=== PATIENT | male | born 1970 | race Caucasian/White ===

== ENCOUNTER 2019-11-23 12:57 | Inpatient (IN) | payer OTHER, SELFPAY ==
[2019-11-23] VITALS (8 sets, daily range): BP systolic 131–160; BP diastolic 84–121; PULSE 41–55; RESP 14–20; TEMP 36.3–36.9; O2SAT 97–100; BMI 29.0
--- NOTE | ~2019-11-23 | CT_ITS ---
EXAMINATION: CTA brain DATE: 11/26/2019 09:17 INDICATION: Cerebrovascular accident. TECHNIQUE: Computed tomographic angiography (CTA) of the head was performed without and with 100 mL O mnipaque-350 intravenous contrast. Automated exposure control and iterative reconstruction technique were employed. The dose-length product was 1075.43 mGy-cm. Maximum intensity projection 3D reconstru ctions were created. Volume-rendered 3D reconstructions of the intracranial arteries were created by the technologist on a separate workstation. COMPARISON: Head CT 11/23/2019 FINDINGS: There is a low-attenuation infarct in inferior left cerebellum in the expected distribution of left posterior inferior cerebellar artery. There is no intracranial hemorrhage or abnormal mass l esion. The ventricles are normal in size. There is mild mucosal thickening in the paranasal sinuses. The mastoid air cells are normal. The orbits are normal. There is total occlusion of left vertebral a rtery. There is no significant stenosis of basilar artery or the posterior cerebral arteries. There i s no significant stenosis of the intracranial internal carotid arteries or anterior or middle cerebra l arteries. Anterior communicating artery is normal. The posterior communicating arteries are normal. There is no aneurysm. IMPRESSION: 1. Acute/subacute infarct in inferior left cerebellum. 2. Total occlusion of left vertebral artery. Reviewed, dictated and finalized at location A.
--- NOTE | ~2019-11-23 | US_ITS ---
EXAMINATION: US carotid duplex BI DATE: 11/24/2019 13:37 INDICATION: Stroke with left-sided hemiparesis TECHNIQUE: Grayscale, color Doppler, and pulsed Doppler images of the cervical carotid arteries were obtained. The degree of vessel stenosis is placed in one of the following categories: normal, <50%, 5 0-69%, >=70% but less than near-occlusion, near-occlusion, or total occlusion. Note that percent sten osis relative to normal distal artery lumen diameter is indirectly measured from velocity measurement s as described by Emil, et al. Radiology 2003; 229:340-346. COMPARISON: None. FINDINGS: RIGHT: The right common carotid artery (CCA) peak systolic velocity (PSV) is 77 cm/s. The right internal car otid artery (ICA) PSV is 67 cm/s. The right ICA end-diastolic velocity (EDV) is 25 cm/s. The right IC A/CCA PSV ratio is 0.9. Grayscale and color Doppler images demonstrate no evident stenosis or plaque in the ICA. The external carotid artery (ECA) PSV is 67 cm/s. There is antegrade flow in the right ve rtebral artery. LEFT: The left CCA PSV is 90 cm/s. The left ICA PSV is 70 cm/s. The left ICA EDV is 22 cm/s. The left ICA/C CA PSV ratio is 0.8. Grayscale and color Doppler images and straight no evident stenosis or plaque in the ICA. The ECA PSV is 75 cm/s. There is antegrade flow in the left vertebral artery. IMPRESSION: 1. No evident plaque or stenosis in the right internal carotid artery. 2. No evident plaque or stenosis in the left internal carotid artery. Reviewed, dictated and finalized at location A.
--- NOTE | ~2019-11-23 | CT_ITS ---
EXAMINATION: CT brain wo con DATE: 11/23/2019 13:40 INDICATION: Stroke. Lower extremity weakness and dizziness. TECHNIQUE: Computed tomography (CT) of the head was performed without intravenous contrast. Sagittal and coronal reconstructions were performed. The mA was adjusted according to patient size. Iterative reconstruction technique was employed. The dose-length product was 605.33 mGy-cm. COMPARISON: None FINDINGS: No fracture. Region of prominent decreased attenuation in the left cerebellar hemisphere. No other le sions suspicious for infarct. No acute intracranial hemorrhage or abnormal extra axial fluid collecti on. Ventricles are normal and symmetric. No mass/mass effect. Mucous retention cyst in the left maxil marilyn sinus. The orbits and mastoid air cells are normal. IMPRESSION: 1. Nonspecific region of decreased attenuation in the left cerebellar hemisphere. Differential would include most likely infarct with decreased attenuation favoring subacute or chronic over acute. Diffe rential includes less likely malignancy or infection. Correlate with clinical history. Reviewed, dictated and finalized at location A. IMPRESSION: 1. Nonspecific region of decreased attenuation in the left cerebellar hemispher e. Differential would include most likely infarct with decreased attenuation fa voring subacute or chronic over acute. Differential includes less likely malign edelmira or infection. Correlate with clinical history.
--- NOTE | ~2019-11-23 | XR_ITS ---
EXAMINATION: XR pelvis 1-2V DATE: 11/23/2019 13:33 INDICATION: Pelvic pain post fall TECHNIQUE: An anteroposterior view of the pelvis was obtained. COMPARISON: None. FINDINGS: Mild lumbar levocurvature with severe spondylosis. Normal alignment at the bilateral hips. Old fractu re deformities at the right superior and inferior pubic rami. No acute fracture. Bilateral hip joint spaces are normal. There are a few phleboliths in the pelvis. IMPRESSION: 1. No acute osseous abnormality. Reviewed, dictated and finalized at location A.
--- NOTE | ~2019-11-23 | XR_ITS ---
EXAMINATION: XR chest 1V portable DATE: 11/23/2019 13:33 INDICATION: Stroke fall TECHNIQUE: frontal and lateral views of the chest were obtained. COMPARISON: None FINDINGS: Opacities at the bilateral lung bases including a linear opacity at the right lung base extending to the mid lung zone. No pulmonary edema pleural effusion or pneumothorax. Small calcified nodule at the left costophrenic angle consistent with old granulomatous disease. The cardiomediastinal silhouette is normal. Tortuous thoracic aorta. IMPRESSION: 1. Opacities at the bilateral lower lung zones which could represent atelectasis, pneumonia or combin ation thereof. Reviewed, dictated and finalized at location A. IMPRESSION: 1. Opacities at the bilateral lower lung zones which could represent atelectasi s, pneumonia or combination thereof.
--- NOTE | ~2019-11-23 | XR_ITS ---
EXAMINATION: XR chest 2V DATE: 11/26/2019 09:01 INDICATION: Pneumonia TECHNIQUE: AP and lateral views of the chest are obtained. COMPARISON: 11/23/2019 FINDINGS: Linear airspace opacities of the lung bases are consistent with subsegmental atelectasis. T here is decreased airspace opacity of the right lung base. There is no pleural effusion or pneumothor ax. The cardiomediastinal silhouette is normal. There is mild thoracic spondylosis. IMPRESSION: 1. Decreased bibasilar airspace opacity, consistent with resolving atelectasis versus pneumonia with persistent subsegmental atelectasis of the lung bases. Reviewed, dictated and finalized at location A.
--- NOTE | ~2019-11-23 | CT_ITS ---
EXAMINATION: CT lumbar spine wo con DATE: 11/23/2019 13:40 INDICATION: Lower extremity weakness post fall TECHNIQUE: Computed tomography (CT) of the lumbar spine was performed without intravenous contrast. A utomated exposure control and iterative reconstruction technique were employed. The dose-length produ ct was 1448.44 mGy-cm. COMPARISON: None FINDINGS: 15 degree levoscoliosis measured between L3 and S1. Likely physiologic minimal anterior wedging at T1 1-L1. No acute fracture. Old healed fracture deformity at the lateral aspect of the right superior pu bic ramus. Suggestion of additional old healed fracture along the anterior cortex of the right sacral ala. Severe right-sided disc height loss with sclerotic Modic type III endplate changes at L4-L5. Mo derate left-sided disc height loss at L5-S1 full/prominent Modic type III endplate changes. Diffuse m oderate disc height loss at L4-L5. Mild disc height loss at L2-L3. Lobular contour to the upper pole of the left kidney suggesting a partially visualized exophytic lesion which could be either a protein aceous/hemorrhagic cyst or solid neoplasm. There are few diverticula without adjacent inflammatory ch rhea along the sigmoid colon. Partially visualized small fat-containing left inguinal hernia. Paraver tebral soft tissues are unremarkable. The following disc levels are specifically discussed: T10-T11: The disc does not extend beyond the endplate margin. There is mild bilateral facet joint ost eoarthritis. There is no neural foraminal stenosis. There is no central canal stenosis. T11-T12: Disc is minimally bulging. There is mild bilateral facet joint osteoarthritis. There is no n eural foraminal stenosis. There is no central canal stenosis. T12-L1: Disc is minimally bulging. There is mild bilateral facet joint osteoarthritis. There is no ne ural foraminal stenosis. There is no central canal stenosis. L1-L2: Disc is mildly bulging. There is mild bilateral facet joint osteoarthritis. There is no neural foraminal stenosis. There is minimal central canal stenosis. L2-L3: Disc is mildly bulging. There is mild bilateral facet joint osteoarthritis. There is minimal b ilateral neural foraminal stenosis. There is mild central canal stenosis. L3-L4: Moderate diffuse disc bulge. There is mild bilateral facet joint osteoarthritis. There is mild bilateral neural foraminal stenosis. There is mild central canal stenosis. L4-L5: Moderate diffuse disc bulge. There is mild left and moderate right facet joint osteoarthritis. There is moderate right and mild left neural foraminal stenosis. There is mild to moderate central c anal stenosis. L5-S1: Mild diffuse disc bulge. There is mild bilateral facet joint osteoarthritis. There is mild rig ht and moderate left neural foraminal stenosis. There is no central canal stenosis. IMPRESSION: 1. Mild lower lumbar levoscoliosis with moderate to severe lower lumbar spondylosis. 2. Lobular contour at the upper pole of the left kidney suggesting a partially visualized exophytic p roteinaceous/hemorrhagic cyst or solid neoplasm. Recommend follow-up pre and postcontrast MRI for fur ther evaluation. Reviewed, dictated and finalized at location A. IMPRESSION: 1. Mild lower lumbar levoscoliosis with moderate to severe lower lumbar spondyl osis. 2. Lobular contour at the upper pole of the left kidney suggesting a partially visualized exophytic proteinaceous/hemorrhagic cyst or solid neoplasm. Recommen d follow-up pre and postcontrast MRI for further evaluation.
--- NOTE | 2019-11-23 13:05 | ECG_ITS ---
Measurements Intervals [place] Rate: 45 P: 34 IL: 171 QRS: -16 QRSD: 117 T: 74 QT: 500 QTc: 433 Interpretive Statements SINUS BRADYCARDIA EARLY PRECORDIAL R/S TRANSITION ST-T WAVE ABNORMALITY IN ANT/LAT LEADS- CONSIDER ISCHEMIA BASELINE WANDER- I, II ABNORMAL ECG Electronically Signed On 11-26-2019 16:59:22 CDT by Jose Doe D.O.
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
[2019-11-23 13:32] LABS: Basophils Percent Auto 0.2 % (0.2-1.2); Eosinophils Percent Auto 0.3 % (0-4.4); Hematocrit 44.5 % (42.0-52.0); Hemoglobin 15.5 g/dL (14.0-18.0); Immature Granulocyte Absolute 0.05 K/mm3 (0.00-0.031); Immature Granulocyte Percent A 0.4 % (0-0.5); Lymphocytes Absolute Auto 2.36 K/mm3 (0.9-3.2); Lymphocytes Percent Auto 17.5 % (18.3-44.2); Mean Corpuscular HGB Conc 34.8 g/dl (32-36); Mean Corpuscular Hemoglobin 33.6 pg (26-34); Mean Corpuscular Volume 96.5 fl (80-100); Mean Platelet Volume 10.2 fl (7.4-10.4); Monocytes Absolute Auto 0.6 K/mm3 (0.1-0.6); Monocytes Percent Auto 4.1 % (2.6-8.5); Neutrophils Absolute Auto 10.4 K/mm3 (1.3-6.7); Neutrophils Percent Auto 77.5 % (45.5-73.1); Platelet Count Result 275 k/mm3 (150-375); Red Blood Count 4.61 M/mm3 (4.6-6.20); Red Cell Distribution Width 13.1 % (11.5-14.5); White Blood Count 13.5 K/mm3 (4.5-10.0)
[2019-11-23 13:42] LABS: Creatine Kinase 42 U/L (55-170)
[2019-11-23 13:44] LABS: Alanine Aminotransferase 53 U/L (4-50); Albumin Level 4.3 g/dL (3.5-5.1); Alkaline Phosphatase 64 U/L (38-126); Aspartate Amino Transferase 34 U/L (17-59); Bilirubin,Total 1.4 mg/dL (0.2-1.3); Blood Urea Nitrogen 15 mg/dL (9-20); Calcium 9.3 mg/dL (8.4-10.2); Carbon Dioxide 23 mmol/L (22-30); Chloride 105 mmol/L (98-107); Estimated CRCL calculation 159 ml/min; Estimated Glomerular Filt Rate > 60; Glucose 147 mg/dL (75-110); Potassium 3.8 mmol/L (3.4-5.0); Sodium 141 mmol/L (137-145)
[2019-11-23 13:45] LABS: Partial Thromboplastin Time 27.3 SECONDS (22.3-36.8); Prothrombin Time 13.2 Seconds (11.1-14.7)
[2019-11-23 13:57] LABS: Troponin I 0.057 ng/mL (0.000-0.034)
[2019-11-23 14:52] LABS: NT Pro B Type Natriuretic Pept 139 PG/ML (5-100)
[2019-11-23] MEDS: ASPIRIN 81 MG CHEWABLE TABLET 324 MG PO (15:27)
--- NOTE | 2019-11-23 15:32 | PC.NURSE ---
Pt unable to give urine sample at this time. Informed Dr. Alanis of this
--- NOTE | 2019-11-23 16:29 | ADMGEN ---
This patient, Scott Ndiaye, was admitted to Intensive Care Unit-3. Patient/family oriented to hospital policies and general routines including ID bracelet, bed and alarms, visiting hours, pain management, procedures, bathroom and other care routines, personal items, smoking policy, room service/diet, and visiting hours. Valuables list has been completed. Information on how to activate the Rapid Response Team has been discussed. Patient/Family are encouraged to report perceived risks to care and to ask questions if they do not understand what they are told or what they should do.
[2019-11-23 17:14] LABS: Troponin I 0.055 ng/mL (0.000-0.034)
--- NOTE | 2019-11-23 18:22 | PM.IMHP ---
H&P: HPI History of Present Illness Chief complaint: CVA/community acquired pneumonia/elevated troponin Narrative: Scott Ndiaye is a 49 year old male came to the emergency room because he felt like he was having a stroke. The patient fell sleeps Chaitanya night and woke up a few times and vomited. He felt like he had some acid in his stomach and he could not sit up for more than a few minutes because his eyes were foggy and blood so the patient stayed on the couch. He was nauseated when sitting up. He no longer has any nausea at this time. The left side of his face and left hand feel numb today. He is having problems talking. Uses orientated and could not see the phone to call 911. Blood pressure medications. Which was read as nonspecific region of decreased attenuation in the left cerebral hemisphere. Differential included most likely infarct with decreased attenuation favoring subacute or chronic over acute. Differential includes least likely malignant is here infection. Correlate with clinical history. Some hip pain so a hip x-ray was taken and was read as mild lumbar levo curvature was severe spondylosis. Normal alignment of the bilateral hips. Old fracture deformities of the right superior and inferior pubic rami. No acute osseous to abnormality. Lumbar spine was read as mild lower lumbar levoscoliosis with moderate to severe lower lumbar spondylosis. Lobular contour at the upper pole of the left kidney suggesting a partially visualized exophytic proteinaceous hemorrhagic cyst or solid neoplasm recommend follow-up MRI. The patient stated that he still has blurred vision today. The patient was tested for covid 19 because his chest x-ray was read as a pace 80s at the bilateral lower lung zones which could represent atelectasis, pneumonia combination thereof. However the patient has not had any fever or chills or any cough. Patient was given an aspirin for the stroke and he was placed Azthromycin and Rocephin. Neurology has been consulted. MRI of the brain has been ordered. Date of service 11/23/2019 Review of Systems Review of Systems: Narrative: Patient difficult stated he thought he was here for a stroke and not for pneumonia. All systems reviewed & are unremarkable except as noted in HPI and below Constitutional: Constitutional: Reports as per HPI and Reports no additional constitutional complaints Eyes: Eyes: Reports as per HPI and Reports no additional eye complaints ENT: Reports system reviewed and no additional complaints, except as documented and Reports Normal hearing present Cardiovascular: Cardiovascular: Reports no additional cardiovascular complaints Respiratory: Respiratory: Reports no additional respiratory complaints and Reports no additional respiratory complaints Gastrointestinal: Gastrointestinal: Reports as per HPI and Reports no additional gastrointestinal complaints Musculoskeletal: Musculoskeletal: Reports no additional musculoskeletal complaints Integumentary/Breasts: Skin/Breast: Reports system reviewed and no additional complaints, except as docu and Reports as per HPI Neurologic: Reports system reviewed and no additional complaints, except as documented, Reports as per HPI and Reports Normal hearing present Psychiatric: Psychiatric: Reports no additional psychiatric complaints and Reports as per HPI Endocrine: Endocrine: Reports no additional endocrine complaints Hematologic/Lymphatic: Hematologic/Lymphatic: Reports no additional hematologic/lymphatic complaints Allergic/Immunologic: Allergic/Immunologic: Reports no additional allergic/immunologic complaints [facility] Past Medical History Medical History (Updated 11/23/19 @ 20:22 by Danielle Suarez NP) Anxiety Arthritis Back injury Back pain Chronic GERD H/O: HTN (hypertension) Hepatitis C History of angina History of gastroesophageal reflux (GERD) Hypertension Kidney stones Pelvic fracture Peripheral neuropathy Surgical History [place]
[2019-11-23 20:32] LABS: Add Urine Microscopic? YES; Appearance Urine Clear (Clear); Bacteria Urine Trace /hpf; Bilirubin Urine Negative (Negative); Blood Urine Negative (Negative); Color Urine Yellow (Yellow); Glucose Urine UA Negative (Negative); Ketones Urine 1+ mg/dL (Negative); Leukocyte Esterase Ur Negative LEU/UL (Negative); Mucus Urine Few /lpf; Nitrate Urine Negative (Negative); Protein Urine 1+ mg/dL (Negative); Specific Grav Ur 1.025 (1.001-1.035); Urobilinogen Urine Negative mg/dL (<2.0); WBC Urine 0-3 /hpf
[2019-11-23 20:44] LABS: Barbiturate Screen Urine Negative (Negative); Benzodiazepines Screen Urine Negative (Negative)
[2019-11-23 20:58] LABS: Cannabinoid Screen Urine Positive (Negative); Cocaine Screen Urine Negative (Negative); Methadone Screen Urine Negative (Negative); Opiate Screen Urine Negative (Negative); Phencyclidine Screen Urine Negative (Negative)
[2019-11-23 21:11] LABS: Amphetamine Screen Urine Positive (Negative)
[2019-11-23] MEDS: hydrALAZINE HCL 20 MG/ML VIAL 10 MG IV PUSH (22:13)
[2019-11-23] MEDS: ACETAMINOPHEN 325 MG TABLET 650 MG PO (22:38)
[2019-11-24] VITALS (12 sets, daily range): BP systolic 123–148; BP diastolic 77–106; PULSE 55–70; RESP 16–20; TEMP 35–37.1; O2SAT 94–97
--- NOTE | 2019-11-24 | ECHO_ITS ---
Patient Info Name: Scott Ndiaye Age: 49 years : 1970 Gender: Male Ht: 75 in Wt: 230 lbs BSA: 2.37 m2 HR: 52 bpm BP: 148 / 106 mmHg Heart Rhythm: Sinus Rhythm Technical Quality: Good Exam Date: 11/24/2019 9:07 AM Exam Location: [facility] Patient Status: Inpatient Admit Date: 11/23/2019 Staff Ordering Physician: Danielle Suarez NP Director Of Infection Prevention: Kanu Judd, ZACH, RT Attending Provider: Edna Neff MD Referring Physician: Erick GONZALES; Exam Type: CA echo dop bubble study w con Study Info Indications G45.8 - Other transient cerebral ischemic attacks and related syndromes Complete two-dimensional, color flow and Doppler transthoracic echocardiogram is performed with contrast to opacify the left ventrical and to improve the deliniation of the left ventrical endocarial boarders. Complete two-dimensional, color flow and Doppler transthoracic echocardiogram is performed with agitated saline. Summary 1. Left ventricular systolic function is normal, estimated at 55-60%. 2. Definity contrast injected to improve visualization. 3. 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 4. Right ventricular chamber dimension is normal. 5. Left atrial chamber dimension is mildly enlarged. 6. Intact interatrial septum visualized by agitated saline imaging. 7. Agitated saline contrast injection demonstrates evidence of intracardiac shunting. Left Ventricle Left ventricular chamber dimension is normal. Left ventricular systolic function is normal, estimated at 55-60%. The left ventricular diastolic function is normal. Definity contrast injected to improve visualization. 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 Right Ventricle Right ventricular chamber dimension is normal. Left Atria Left atrial chamber dimension is mildly enlarged. Right Atria Right atrial chamber dimension is normal. Atrial Septum Intact interatrial septum visualized by agitated saline imaging. Agitated saline contrast injection demonstrates evidence of intracardiac shunting. Aortic Valve The aortic valve is normal. Pulmonic Valve The pulmonic valve is not well visualized. Mitral Valve The mitral valve has normal leaflets. Tricuspid Valve The tricuspid valve leaflets are not well visualized. Pericardium/Pleural The pericardium appears normal. Aorta The aortic root size at the sinus of Valsalva is normal. Left Ventricular Outflow Tract Name Value Normal LVOT 2D LVOT Diameter 2.2 cm LVOT Doppler LVOT Peak Gradient 3 mmHg LVOT Mean Gradient 2 mmHg LVOT VTI 17 cm LVOT VTI/AV VTI Ratio 0.7 LVOT Stroke Volume 64 ml LVOT CO 3.5 l/min LVOT CI 1.5 l/min/m2 Mitral Valve Name Value Normal MV Doppler
[2019-11-24] MEDS: ACETAMINOPHEN 325 MG TABLET 650 MG PO ×3 (04:18→12:22)
[2019-11-24 04:55] LABS: Basophils Percent Auto 0.3 % (0.2-1.2); Eosinophils Absolute Auto 0.2 K/mm3 (0-0.3); Eosinophils Percent Auto 1.1 % (0-4.4); Hematocrit 45.6 % (42.0-52.0); Immature Granulocyte Absolute 0.07 K/mm3 (0.00-0.031); Immature Granulocyte Percent A 0.5 % (0-0.5); Lymphocytes Absolute Auto 4.29 K/mm3 (0.9-3.2); Mean Corpuscular HGB Conc 35.1 g/dl (32-36); Mean Corpuscular Hemoglobin 33.8 pg (26-34); Mean Corpuscular Volume 96.4 fl (80-100); Mean Platelet Volume 10.3 fl (7.4-10.4); Monocytes Absolute Auto 0.8 K/mm3 (0.1-0.6); Monocytes Percent Auto 5.7 % (2.6-8.5); Neutrophils Absolute Auto 8.9 K/mm3 (1.3-6.7); Neutrophils Percent Auto 62.4 % (45.5-73.1); Platelet Count Result 282 k/mm3 (150-375); Red Blood Count 4.73 M/mm3 (4.6-6.20); White Blood Count 14.3 K/mm3 (4.5-10.0)
[2019-11-24 05:08] LABS: Alanine Aminotransferase 56 U/L (4-50); Albumin Level 4.3 g/dL (3.5-5.1); Alkaline Phosphatase 58 U/L (38-126); Aspartate Amino Transferase 33 U/L (17-59); Bilirubin,Total 1.1 mg/dL (0.2-1.3); Blood Urea Nitrogen 14 mg/dL (9-20); Calcium 9.5 mg/dL (8.4-10.2); Carbon Dioxide 30 mmol/L (22-30); Chloride 104 mmol/L (98-107); Estimated CRCL calculation 119 ml/min; Estimated Glomerular Filt Rate > 60; Glucose 109 mg/dL (75-110); Magnesium 1.9 mg/dL (1.6-2.3); Potassium 4.5 mmol/L (3.4-5.0); Sodium 136 mmol/L (137-145)
[2019-11-24] MEDS: hydrALAZINE HCL 20 MG/ML VIAL 10 MG IV PUSH (06:01)
[2019-11-24 06:02] LABS: Thyroid Stimulating Hormone Reflex 0.312 uIU/mL (0.465-4.68)
[2019-11-24 06:34] LABS: Free T4 Free Thyroxine Reflex 1.02 ng/dL (0.78-2.19)
[2019-11-24 07:37] LABS: Total Triiodothyronine (T3) 1.02 NG/ML (0.97-1.69)
[2019-11-24] MEDS: ASPIRIN 81 MG CHEWABLE TABLET PO (08:41)
[2019-11-24] MEDS: PERFLUTREN LIPID MICROSPHERES 1.5 ML VIAL DILUTED TO 10 ML TOTAL VOLUME IV PUSH (09:47)
--- NOTE | 2019-11-24 11:54 | CONS_ITS ---
DATE OF CONSULTATION: 11/23/2019 This 49 years old right-handed male has been admitted to [facility] through the emergency room for the possibility of the stroke. Reportedly, the patient fell asleep Chaitanya night and woke up a few times and vomited. He was unable to sit up for more than a few minutes because eyes are fogging, but he stayed on the couch, but still he was nauseated when sitting up, left side of the face was numb. He had problems in talking. CT scan was read as nonspecific decreased attenuation in left cerebral hemisphere favoring the chronic or acute infarct, including the differential of the malignancy also. He was noted to have old fracture deformity of the right superior and inferior pubic rami with lower lumbar levoscoliosis and spondylosis. Was found to have exophytic proteinaceous hemorrhagic cyst or solid neoplasm on the left kidney, for which repeat studies were recommended. He received aspirin in the emergency room, was placed on azithromycin and Rocephin. MRI of the brain was ordered. On review of system, no additional complaints were reported. He has a past history of anxiety, arthritis, back injury with chronic back pain, GERD, hypertension, hepatitis C, angina, kidney stones, pelvic fracture, and peripheral neuropathy. He has undergone foot surgery, inguinal hernial repair, vasectomy, colectomy, intestinal surgery. History of smoking 5 packs per day, smoking pack years 17.5, current every day smoker. No drinker. Using the marijuana and methamphetamine. HOME MEDICATIONS: Included amlodipine and metoprolol. ALLERGIES: HE IS NOT ALLERGIC TO ANY MEDICATION. PHYSICAL EXAMINATION: VITAL SIGNS: Evaluation up until now revealed him afebrile, normotensive, initially 160/112, but now 150/107. GENERAL: General physical examination normal. HEAD: Normocephalic with no cranial bruit. EAR, NOSE, THROAT: Normal. NECK: Supple. HEART: Regular. LUNGS: Clear. ABDOMEN: Soft. NEUROLOGICAL: He is awake, alert, oriented. Pupils round, regular. Unger of vision full. Extraocular movements full. Face symmetrical. Tongue midline. Motor examination revealed him to have no significant focal deficit. IMPRESSION AND PLAN: Plan is to obtain the MRI. If the MRI cannot be obtained, we can always repeat the CT scan in 3 days to see if any evolving stroke is noted. In the mean time, he is taking his antihypertensive medication and also aspirin. Further recommendation accordingly. GENTRY MCINTOSH M.D. MANAGER LOCAL MANAGER LOCAL D I MT: Malini
--- NOTE | 2019-11-24 17:38 | PM.IMPN ---
Progress Note: A&P Assessment and Plan (1) Pneumonia: Code(s): J18.9 - Pneumonia, unspecified organism Status: Acute Assessment and Plan: The patient was treated empirically for community-acquired pneumonia. The patient denies any fever chills or cough. He does have a mildly elevated white count of 13.5. He has not traveled outside the country. Her been around any other sick people. Upon my review of the chest x-ray appears to be more fluid like to me. However did continue with his a Zithromax and Rocephin for now. He has a pending covid in 19 culture pending. Continue with blood cultures. 11/24/19 17:38 Patient is a 49-year-old male states that on SundayOctober [age] year old is more cycle back home after work he was feeling nauseated and was not able to sleep he felt that his left upper and lower weaker than the right he was not able to ambulate and fell, he also had difficult time with focusing is eyes, he continued to have nausea and vomiting he presented emergency department for further evaluation CT scan of the head showed Nonspecific region of decreased attenuation in the left cerebellar hemisphere. Differential would include most likely infarct with decreased attenuation favoring subacute or chronic over acute. Differential includes less likely malignancy or infection. Correlate with clinical history. Carotid ultrasound are negative for stenosis cardiac echo is negative a for any shunt, he continued to complain weakness in his left side upper and lower extremities and difficulty with his vision, patient is seen neurologist recommended continue aspirin and to MRI for further evaluation is unable to have MRI will repeat CT scan in 3 days, a PT OT evaluate the patient and further recommendation to follow, because of patient's sudden onset of nausea or vomiting and cough and chest x-ray showing bilateral bases infiltrate there is a concerned the patient may be positive Covid 19 and is being tested and precautions are taken (2) CVA (cerebral vascular accident): Code(s): I63.9 - Cerebral infarction, unspecified Status: Acute Assessment and Plan: Patient did have a suspicion for stroke on a CT. MRI has been ordered. Carotid Dopplers were also ordered and a bubble study. Patient is having some visual difficulty at this time. Neurology consult was greatly be appreciated. Patient was started on an aspirin. (3) Hypertension: Code(s): I10 - Essential (primary) hypertension Status: Acute Assessment and Plan: P.r.n. hydralazine only. Hold home medications. The patient was on Norvasc and metoprolol. Will permissively monitor the blood placed (4) Anxiety: Code(s): F41.9 - Anxiety disorder, unspecified Status: Chronic Assessment and Plan: He is not currently on any medications at this time please continue to monitor. Subjective Date/time seen: 11/24/19 17:38 Patient is a 49-year-old male states that on SundayOctober [age] year old is more cycle back home after work he was feeling nauseated and was not able to sleep he felt that his left upper and lower weaker than the right he was not able to ambulate and fell, he also had difficult time with focusing is eyes, he continued to have nausea and vomiting he presented emergency department for further evaluation CT scan of the head showed Nonspecific region of decreased attenuation in the left cerebellar hemisphere. Differential would include most likely infarct with decreased attenuation favoring subacute or chronic over acute. Differential includes less likely malignancy or infection. Correlate with clinical history. Carotid ultrasound are negative for stenosis cardiac echo is negative a for any shunt, he continued to complain weakness in his left side upper and lower extremities and difficulty with his vision, patient is seen neurologist recommended continue aspirin and to MRI for further evaluation is unable to have MRI will repeat CT scan
[2019-11-25] VITALS (7 sets, daily range): BP systolic 114–147; BP diastolic 65–115; PULSE 64–92; RESP 12–20; TEMP 36.1–36.9; O2SAT 92–98
[2019-11-25] MEDS: PANTOPRAZOLE 40 MG TABLET PO (09:20)
[2019-11-25] MEDS: ASPIRIN 81 MG CHEWABLE TABLET PO (09:21)
--- NOTE | 2019-11-25 16:29 | PM.IMPN ---
Progress Note: A&P Assessment and Plan (1) Pneumonia: Code(s): J18.9 - Pneumonia, unspecified organism Status: Acute Assessment and Plan: 11/25/19 16:29 The patient was treated empirically for community-acquired pneumonia. The patient denies any fever chills or cough. He does have a mildly elevated white count of 13.5. He has not traveled outside the country. Her been around any other sick people. Upon my review of the chest x-ray appears to be more fluid like to me. However did continue with his a Zithromax and Rocephin for now. He has a pending covid in 19 culture pending. Continue with blood cultures. Patient is a 49-year-old male states that on SundayOctober [age] year old is more cycle back home after work he was feeling nauseated and was not able to sleep he felt that his left upper and lower weaker than the right he was not able to ambulate and fell, he also had difficult time with focusing is eyes, he continued to have nausea and vomiting he presented emergency department for further evaluation CT scan of the head showed Nonspecific region of decreased attenuation in the left cerebellar hemisphere. Differential would include most likely infarct with decreased attenuation favoring subacute or chronic over acute. Differential includes less likely malignancy or infection. Correlate with clinical history. Carotid ultrasound are negative for stenosis cardiac echo is negative a for any shunt, he continued to complain weakness in his left side upper and lower extremities and difficulty with his vision, patient is seen neurologist recommended continue aspirin and to MRI for further evaluation is unable to have MRI will repeat CT scan in 3 days, a PT OT evaluate the patient and further recommendation to follow, because of patient's sudden onset of nausea or vomiting and cough and chest x-ray showing bilateral bases infiltrate there is a concerned the patient may be positive Covid 19 and is being tested and precautions are taken, today patient is feeling little better, unable to MRI severe have ordered CTA of the brain further evaluate, Covid 19 test is negative (2) CVA (cerebral vascular accident): Code(s): I63.9 - Cerebral infarction, unspecified Status: Acute Assessment and Plan: Patient did have a suspicion for stroke on a CT. MRI has been ordered. Carotid Dopplers were also ordered and a bubble study. Patient is having some visual difficulty at this time. Neurology consult was greatly be appreciated. Patient was started on an aspirin. (3) Hypertension: Code(s): I10 - Essential (primary) hypertension Status: Acute Assessment and Plan: P.r.n. hydralazine only. Hold home medications. The patient was on Norvasc and metoprolol. Will permissively monitor the blood placed (4) Anxiety: Code(s): F41.9 - Anxiety disorder, unspecified Status: Chronic Assessment and Plan: He is not currently on any medications at this time please continue to monitor. Subjective Date/time seen: 11/25/19 16:29 The patient was treated empirically for community-acquired pneumonia. The patient denies any fever chills or cough. He does have a mildly elevated white count of 13.5. He has not traveled outside the country. Her been around any other sick people. Upon my review of the chest x-ray appears to be more fluid like to me. However did continue with his a Zithromax and Rocephin for now. He has a pending covid in 19 culture pending. Continue with blood cultures. Patient is a 49-year-old male states that on SundayOctober [age] year old is more cycle back home after work he was feeling nauseated and was not able to sleep he felt that his left upper and lower weaker than the right he was not able to ambulate and fell, he also had difficult time with focusing is eyes, he continued to have nausea and vomiting he presented emergency department for further evaluation CT scan of the head showed Nonspecific r
--- NOTE | 2019-11-25 18:46 | PC.NURSE ---
This patient, Scott Ndiaye, was received from [ICU 3 ] on 11/25/19 at 1847. Personal belongings list checked and signed. Patient/family oriented to unit policies and routines
[2019-11-26] VITALS (7 sets, daily range): BP systolic 120–143; BP diastolic 76–99; PULSE 65–88; RESP 16–22; TEMP 36.1–37; O2SAT 96–100
[2019-11-26] MEDS: ACETAMINOPHEN 325 MG TABLET 650 MG PO ×2 (06:37→12:35)
[2019-11-26] MEDS: PANTOPRAZOLE 40 MG TABLET PO (07:30)
--- NOTE | 2019-11-26 09:27 | WPDNEUROPN ---
Progress Note: A&P Assessment and Plan (1) CVA (cerebral vascular accident): Code(s): I63.9 - Cerebral infarction, unspecified Status: Acute (2) Elevated troponin: Code(s): R79.89 - Other specified abnormal findings of blood chemistry Status: Acute (3) Community acquired pneumonia: Code(s): J18.9 - Pneumonia, unspecified organism Status: Acute (4) Bradycardia, sinus: Code(s): R00.1 - Bradycardia, unspecified Status: Acute (5) Pneumonia: Code(s): J18.9 - Pneumonia, unspecified organism Status: Acute (6) CVA (cerebral vascular accident): Code(s): I63.9 - Cerebral infarction, unspecified Status: Acute (7) Hypertension: Code(s): I10 - Essential (primary) hypertension Status: Acute (8) Anxiety: Code(s): F41.9 - Anxiety disorder, unspecified Status: Chronic Additional Plan stable ,CTA awaited Review of Systems Review of Systems: All systems reviewed & are unremarkable except as noted in HPI and below Exam Const: General: cooperative, healthy appearing, comfortable and no acute distress Nutritional Appearance: average body habitus and well nourished Orientation/consciousness: patient oriented x3 HENMT: Head: normocephalic Ears: hearing grossly normal bilaterally General nose exam: Normal external nose present Mouth: Yes Normal oral and palatal mucosa present Eyes: General: appearance normal, both eyes and all related structures Resp: Effort & Inspection: normal respiratory effort and able to speak in complete sentences Auscultation: clear to auscultation bilaterally Cardio: Rate: regular rate Rhythm: regular rhythm GI: Auscultation: normal bowel sounds Skin: General skin exam: no rashes or lesions noted Neuro: General: patient oriented x3, moves all extremities and CN's II-XI intact bilaterally Cognition (Neuro): normal cognition Speech: normal speech Motor exam (neuro): 5/5 motor strength present throughout Sensory Exam: normal sensation Plantar Reflex Responses: downgoing: bilateral Psych: Speech and movement: Normal speech and movement present Affect: Irritable affect present Attitude: cooperative Thought process: Normal thought process present Thought content: Yes Normal thought content present Insight: Fair insight present (Psych) Objective Data Vital Signs Vital Signs: Vital Signs - 24 hr 11/25/19 10:00 11/25/19 16:00 11/26/19 00:00 Temperature 36.3 C L Pulse Rate 83 92 72 Respiratory Rate 20 22 H Blood Pressure 147/115 H 143/91 H Pulse Oximetry 93 98 11/26/19 05:50 Temperature 37.0 C Pulse Rate 65 Respiratory Rate 20 Blood Pressure 120/76 Pulse Oximetry 100 Intake/Output Intake/Output: Intake & Output 11/23/19 11/24/19 11/25/19 11/26/19 23:59 23:59 23:59 23:59 Intake Total 154 847 0201 720 Output Total 1500 1400 400 Balance 540 -550 1080 320 Meds/Results Medications: Active Medications Generic Name Dose Route Start Last Admin Trade Name Freq PRN Reason Stop Dose Admin Acetaminophen 650 mg 11/23/19 18:32 11/26/19 06:37 Tylenol Tablet PO 650 mg Q4H PRN Administration Mild Pain (1-3) or Fever Hydrocodone Bitart/Acetaminophen 1 tab 11/24/19 21:21 11/24/19 21:57 [place] 5-325 Mg PO 1 tab Q4H PRN Administration Pain Rated 4-6 Aspirin 81 mg 11/24/19 08:00 11/25/19 09:21 Aspirin Chewable PO 81 mg DAILY@0800 [facility] Administration Hydralazine HCl 10 mg 11/23/19 18:30 11/24/19 06:01 Apresoline Hcl Inj IV PUSH 10 mg Q8H PRN Administration Blood Pressure - High Ceftriaxone Sodium/Dextrose 1 gm in 50 mls @ 100 mls/hr 11/24/19 15:00 11/25/19 19:32 Rocephin 1 Gm/D5w 50 Ml IVPB Infused DAILY@1500 LEV Infusion Azithromycin 500 mg in 250 mls @ 250 mls/hr 11/24/19 16:00 11/25/19 23:20 Zithromax IVPB Infused DAILY@1600 LEV Infusion Loratadine/Pseudoephedrine Sulfate 1 tab 11/26/19 12:00
[2019-11-26] MEDS: ASPIRIN 81 MG CHEWABLE TABLET PO (09:40)
[2019-11-26 10:45] LABS: Cholesterol 177 mg/dL (0-200); HDL Direct 31 mg/dL; Triglycerides 119 mg/dL (<150)
[2019-11-26 10:56] LABS: LDL Cholesterol Direct 124 mg/dL
[2019-11-26] MEDS: ATORVASTATIN 40 MG TABLET PO (11:35)
[2019-11-26] MEDS: CLOPIDOGREL BISULFATE 75 MG TABLET PO (11:35)
--- NOTE | 2019-11-26 12:51 | WPDCN ---
Assessment and Plan Assessment and plan (1) CVA (cerebral vascular accident): Code(s): I63.9 - Cerebral infarction, unspecified Status: Acute Assessment and Plan: Acute stroke which is possibly thrombotic/cardioembolic. Pt uses meth; drug screen positive for meth which is a possible culprit, though typically they are ischemic strokes. Has a patent foramen ovale which could be the culprit. Also has hypertension (quite high on admission). Will evaluate for paroxysmal atrial fibrillation as well. Will place on satellite project site monitor and pt can flower picker a 30 day monitor from our office when he is discharged. Check EKG and put on Tele while here. JERZY tmr. Agree w/ current tx w/ ASA, Plavix and statin. Reviewed w/ Dr. Gilbert. (2) Hypertension: Code(s): I10 - Essential (primary) hypertension Status: Acute Assessment and Plan: Currently not on BP medications but takes amlodipine and metoprolol at home. BP was quite high on admission, perhaps fr stress, med noncompliance, or meth. Presumably held to allow for ?permissive hypertension secondary to recent stroke. (3) Patent foramen ovale: Code(s): Q21.1 - Atrial septal defect Status: Acute Assessment and Plan: Small to medium amount of intracardiac shunting noted during normal respiration (4) Tobacco use: Code(s): Z72.0 - Tobacco use Status: Acute Assessment and Plan: Advised re: health benefits of stopping tobacco and associated increased risk of stroke in smokers. (5) Substance abuse: Code(s): F19.10 - Other psychoactive substance abuse, uncomplicated Status: Acute Assessment and Plan: Amphetamines and cannabis. Advised to stop particularly the meth. HPI Data of Consult Date/Time: 11/26/19 12:51 Requesting Physician: Edna Neff MD Primary Care Provider: PHYSICIAN NOT ON STAFF Consult Narrative Narrative: Scott Ndiaye is a 49 year old male whom we were kindly asked to see at the request of Dr. Neff for our advice and opinion regarding his stroke and possible silent atrial fibrillation, in consultation. The patient was admitted a couple days ago with recent nausea and vomiting, facial numbness and difficulty walking. His CT showed an acute left cerebellar stroke, and a carotid angiogram today showed occlusion of the left vertebral artery. Echo showed normal LV function with a small to medium sized intracardiac shunt during normal respiration. Carotid ultrasound showed no significant disease. The patient has a history of hypertension and smoking. No exertional chest pain, PAN or palpitations. Review of Systems Constitutional: Constitutional: Reports weakness Eyes: Eyes: Denies blurry vision ENT: Denies nasal congestion Cardiovascular: Cardiovascular: Denies chest pain, Denies pedal edema, Denies lightheadedness and Denies palpitations Respiratory: Respiratory: Denies cough and Denies dyspnea Gastrointestinal: Gastrointestinal: Denies abdominal pain and Reports nausea Genitourinary: Genitourinary: Denies dysuria Musculoskeletal: Musculoskeletal: Denies back pain and Denies neck pain Integumentary/Breasts: Skin/Breast: Denies rash Neurologic: Reports abnormal gait, Reports vertigo and Reports headache(s) PMFSH Past Medical History Medical History Anxiety Arthritis Back injury Back pain Chronic GERD H/O: HTN (hypertension) Hepatitis C History of angina History of gastroesophageal reflux (GERD) Hypertension Kidney stones Patent foramen ovale Pelvic fracture Peripheral neuropathy Substance abuse Tobacco use Surgical History Surgical History (Updated 11/23/19 @ 20:22 by Danielle Suarez NP) H/O foot surgery H/O inguinal hernia repair H/O vasectomy History of cholecyst
--- NOTE | 2019-11-26 14:05 | ECG_ITS ---
Measurements Intervals [place] Rate: 77 P: 58 [place]: 169 QRS: -12 QRSD: 93 T: 115 QT: 354 QTc: 401 Interpretive Statements SINUS RHYTHM EARLY PRECORDIAL R/S TRANSITION MINIMAL Q WAVES- INFERIOR LEADS BORDERLINE ST-T WAVE ABNORMALITY- ANTEROLAT/LAT LEADS BASELINE ARTIFACT- I, III, AVL, V3 BORDERLINE ECG Electronically Signed On 11-26-2019 14:49:24 CDT by Jose Doe D.O.
--- NOTE | 2019-11-26 14:24 | PM.IMPN ---
Progress Note: A&P Assessment and Plan (1) Pneumonia: Code(s): J18.9 - Pneumonia, unspecified organism Status: Acute Assessment and Plan: 11/26/19 14:24 The patient was treated empirically for community-acquired pneumonia. The patient denies any fever chills or cough. He does have a mildly elevated white count of 13.5. He has not traveled outside the country. Her been around any other sick people. Upon my review of the chest x-ray appears to be more fluid like to me. However did continue with his a Zithromax and Rocephin for now. He has a pending covid in 19 culture pending. Continue with blood cultures. Patient is a 49-year-old male states that on SundayOctober [age] year old is more cycle back home after work he was feeling nauseated and was not able to sleep he felt that his left upper and lower weaker than the right he was not able to ambulate and fell, he also had difficult time with focusing is eyes, he continued to have nausea and vomiting he presented emergency department for further evaluation CT scan of the head showed Nonspecific region of decreased attenuation in the left cerebellar hemisphere. Differential would include most likely infarct with decreased attenuation favoring subacute or chronic over acute. Differential includes less likely malignancy or infection. Correlate with clinical history. Carotid ultrasound are negative for stenosis cardiac echo is negative a for any shunt, he continued to complain weakness in his left side upper and lower extremities and difficulty with his vision, patient is seen neurologist recommended continue aspirin and to MRI for further evaluation is unable to have MRI will repeat CT scan in 3 days, a PT OT evaluate the patient and further recommendation to follow, because of patient's sudden onset of nausea or vomiting and cough and chest x-ray showing bilateral bases infiltrate there is a concerned the patient may be positive Covid 19 and is being tested and precautions are taken, today patient is feeling little better, unable to do MRI, CTA of the brain showed 1. Acute/subacute infarct in inferior left cerebellum. 2. Total occlusion of left vertebral artery. Patient is seen by fuel injection servicer suspect Meth is playing a role however recommending JERZY to further evaluate cardiac structure and possible thrombosism, patient agrees will have a JERZY tomorrow, will have a PT OT evaluate the patient and patient will benefit going to rehab possibly [facility], started the patient on aspirin Plavix and Lipitor, covid 19 test is negative (2) CVA (cerebral vascular accident): Code(s): I63.9 - Cerebral infarction, unspecified Status: Acute Assessment and Plan: Patient did have a suspicion for stroke on a CT. MRI has been ordered. Carotid Dopplers were also ordered and a bubble study. Patient is having some visual difficulty at this time. Neurology consult was greatly be appreciated. Patient was started on an aspirin. (3) Hypertension: Code(s): I10 - Essential (primary) hypertension Status: Acute Assessment and Plan: P.r.n. hydralazine only. Hold home medications. The patient was on Norvasc and metoprolol. Will permissively monitor the blood placed (4) Anxiety: Code(s): F41.9 - Anxiety disorder, unspecified Status: Chronic Assessment and Plan: He is not currently on any medications at this time please continue to monitor. Subjective Date/time seen: 11/26/19 14:24 The patient was treated empirically for community-acquired pneumonia. The patient denies any fever chills or cough. He does have a mildly elevated white count of 13.5. He has not traveled outside the country. Her been around any other sick people. Upon my review of the chest x-ray appears to be more fluid like to me. However did continue with his a Zithromax and Rocephin for now. He has a pending covid in 19 culture pending. Continue with blood cultures. Patient is a 49-year-old male
[2019-11-27] VITALS (15 sets, daily range): BP systolic 128–168; BP diastolic 96–113; PULSE 61–88; RESP 12–95; TEMP 36–36.4; O2SAT 16–98
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
--- NOTE | 2019-11-27 09:35 | WPDTEECHO ---
JERZY TransEsophageal Echocardiogram Date of procedure: 11/27/19 Procedure Type: Conscious sedation transesophageal echo Diagnosis: Left cerebellar CVA Indications: Left cerebellar CVA, suspected cardioembolic Occluded left vertebral artery Image Quality: Good Findings: Conscious sedation: Assessment: The patient has no history of anesthesia problems. The patient's oropharynx is clear. The patient was deemed to be a good candidate for conscious sedation. The patient had continuous hemodynamic and oximetric monitoring during the procedure. Start time: 920 Completion time: 928 Total conscious sedation time: 8 minutes Medications Used: Versed 4 mg and fentanyl 100 mcg IV push Trained observer: Libra Pelaez RN Outcome: The patient tolerated the procedure well with no complications. Procedure: After informed consent the patient had Hurricaine spray the hypopharynx. The patient had conscious sedation as described above. The transesophageal echo probe was introduced in the esophagus without difficulty. Imaging was obtained in multiplane views. Agitated saline was injected to evaluate for intracardiac shunting. The patient had a strong gag reflex but the scope was inserted without difficulty. Exam was slightly abbreviated (all cardiac structures were viewed but not documented by imaging) because of the gagging. The patient tolerated the procedure well with no complications. Findings: The left atrium was normal. There is no thrombus present in the left atrium or left atrial appendage. The atrial septum was aneurysmal, and a patent foramen ovale was visible. Mitral valve appeared normal, with no stenosis or prolapse. The left ventricle had had normal size and thickness with good contractility of all segments. The ejection fraction is estimated to be: 60%. the aortic root and valve were normal. The ascending aorta, aortic arch and descending thoracic aorta were normal. The right atrium, tricuspid valve, right ventricle, pulmonic valve and pulmonic artery were all normal. There is no pericardial effusion. When agitated saline was injected intravenously there was evidence of moderate intracardiac shunting at the atrial level through the PFO.. Colorflow Doppler Findings: No significant valve disease. Conclusions: Normal left ventricular systolic function No significant valve disease Patent foramen ovale with a moderate intracardiac shunt Atrial septal aneurysm Normal aorta Recommendation: We will try to arrange for outpatient telemetry monitoring to rule out PAF The patient has a patent foramen ovale with atrial septal aneurysm which is a likely cause of his stroke. He may benefit, in the long run, from percutaneous PFO closure. This is an elective procedure that can be postponed until the COVID-19 crisis has improved. Okay for discharge or transfer to rehab on aspirin, Plavix, statin
[2019-11-27] MEDS: SODIUM CHLORIDE 0.9% IV 500 ML 250 ML (09:36)
[2019-11-27] MEDS: MIDAZOLAM HCL 2 MG/2 ML VIAL 12 MG (09:38)
[2019-11-27] MEDS: LIDOCAINE HCL 2% VISC SOLN 15 ML UDC (09:38)
--- NOTE | 2019-11-27 11:16 | WPDNEUROPN ---
Progress Note: A&P Assessment and Plan (1) Substance abuse: Code(s): F19.10 - Other psychoactive substance abuse, uncomplicated Status: Acute (2) Tobacco use: Code(s): Z72.0 - Tobacco use Status: Acute (3) Patent foramen ovale: Code(s): Q21.1 - Atrial septal defect Status: Acute (4) CVA (cerebral vascular accident): Code(s): I63.9 - Cerebral infarction, unspecified Status: Acute (5) Elevated troponin: Code(s): R79.89 - Other specified abnormal findings of blood chemistry Status: Acute (6) Community acquired pneumonia: Code(s): J18.9 - Pneumonia, unspecified organism Status: Acute (7) Bradycardia, sinus: Code(s): R00.1 - Bradycardia, unspecified Status: Acute (8) Pneumonia: Code(s): J18.9 - Pneumonia, unspecified organism Status: Acute (9) CVA (cerebral vascular accident): Code(s): I63.9 - Cerebral infarction, unspecified Status: Acute (10) Hypertension: Code(s): I10 - Essential (primary) hypertension Status: Acute (11) Anxiety: Code(s): F41.9 - Anxiety disorder, unspecified Status: Chronic (12) Cerebellar infarct: Code(s): I63.9 - Cerebral infarction, unspecified Status: Acute (13) Vertebral artery stenosis/occlusion with infarction: Code(s): I63.219 - Cerebral infarction due to unspecified occlusion or stenosis of unspecified vertebral artery Status: Acute Additional Plan total occlusion ofleft vertebral arterywith subacute left cerebellar infarct also withPFO with moderate shunt will need monitoring for AF thenconsideration foranticoagulation aAF Review of Systems Constitutional: Constitutional: Reports no additional constitutional complaints Exam Const: General: cooperative, healthy appearing, comfortable, no acute distress, well developed, alert, awake and Physically active Nutritional Appearance: average body habitus and well nourished Orientation/consciousness: patient oriented x3 Limitations: no limitations HENMT: Head: normocephalic Ears: hearing grossly normal bilaterally General nose exam: Normal external nose present and No nasal discharge present Face and sinus: normal facial exam Mouth: Yes Normal oral and palatal mucosa present and Yes tongue normal Eyes: General: appearance normal, both eyes and all related structures Periorbital: periorbital findings normal Conjunctivae: conjunctivae normal Sclera: sclerae normal Cornea: corneas normal Pupils: Equal, round and reactive pupils present EOM: EOMs intact bilaterally and EOM abnormal Direct Ophthalmoscopy: normal light reflex Neck: Neck: full ROM and no lymphadenopathy Resp: Effort & Inspection: normal respiratory effort and able to speak in complete sentences Auscultation: clear to auscultation bilaterally Cardio: Rate: regular rate Rhythm: regular rhythm GI: Auscultation: normal bowel sounds Skin: General skin exam: no rashes or lesions noted Neuro: General: patient oriented x3, moves all extremities and no meningeal signs Cranial nerves: Yes CN's II-XII intact bilaterally, Yes Equal, round and reactive pupils present, Yes Nystagmus not present, Yes Normal facial strength present, Yes Midline tongue present, Yes Symmetric palate elevation present, Yes Normal hearing present and Yes Ability to bilaterally rotate head present Cognition (Neuro): normal cognition Speech: normal speech Motor exam (neuro): 5/5 motor strength present throughout Sensory Exam: normal sensation Deep tendon reflexes (DTR's): Right triceps reflex intensity grade: 1+, Left triceps reflex intensity grade: 1+, Rt Biceps (C5, C6): 1+, Left biceps reflex intensity grade: 1+, Right brachioradialis reflex intensity grade: 1+, Left brachioradialis reflex intensity grade: 1+, Right patellar reflex intensity grade: 1+, Left patellar reflex intensity grade: 1+, Right ankle
[2019-11-27] MEDS: CLOPIDOGREL BISULFATE 75 MG TABLET PO (11:30)
[2019-11-27] MEDS: PANTOPRAZOLE 40 MG TABLET PO (11:30)
[2019-11-27] MEDS: ATORVASTATIN 40 MG TABLET PO (11:30)
[2019-11-27] MEDS: ASPIRIN 81 MG CHEWABLE TABLET PO (11:30)
--- NOTE | 2019-11-27 12:49 | PCOTNOTE ---
Attempted to see patient this pm, however patient declined stating, No, I'm supposed to be going home, so I'll shower when I get home. Explained benefits and goals of OT, however patient stated he had no concerns for discharge as pertains to OT. Pt reported discharging to stay with someone who is a EMPLOYMENT SPECIALIST, and he will have help available if it's really needed.
--- NOTE | 2019-11-27 14:12 | PM.DS ---
DS: Diagnosis Admitting Diagnosis Admitting Diagnosis: Pneumonia, unspecified organism Discharge Diagnosis (1) Pneumonia: Code(s): J18.9 - Pneumonia, unspecified organism Status: Acute Assessment and Plan: 11/26/19 14:24 The patient was treated empirically for community-acquired pneumonia. The patient denies any fever chills or cough. He does have a mildly elevated white count of 13.5. He has not traveled outside the country. Her been around any other sick people. Upon my review of the chest x-ray appears to be more fluid like to me. However did continue with his a Zithromax and Rocephin for now. He has a pending covid in 19 culture pending. Continue with blood cultures. Patient is a 49-year-old male states that on SundayOctober 2727 year old is more cycle back home after work he was feeling nauseated and was not able to sleep he felt that his left upper and lower weaker than the right he was not able to ambulate and fell, he also had difficult time with focusing is eyes, he continued to have nausea and vomiting he presented emergency department for further evaluation CT scan of the head showed Nonspecific region of decreased attenuation in the left cerebellar hemisphere. Differential would include most likely infarct with decreased attenuation favoring subacute or chronic over acute. Differential includes less likely malignancy or infection. Correlate with clinical history. Carotid ultrasound are negative for stenosis cardiac echo is negative a for any shunt, he continued to complain weakness in his left side upper and lower extremities and difficulty with his vision, patient is seen neurologist recommended continue aspirin and to MRI for further evaluation is unable to have MRI will repeat CT scan in 3 days, a PT OT evaluate the patient and further recommendation to follow, because of patient's sudden onset of nausea or vomiting and cough and chest x-ray showing bilateral bases infiltrate there is a concerned the patient may be positive Covid 19 and is being tested and precautions are taken, today patient is feeling little better, unable to do MRI, CTA of the brain showed 1. Acute/subacute infarct in inferior left cerebellum. 2. Total occlusion of left vertebral artery. Patient is seen by block captain suspect Meth is playing a role however recommending JERZY to further evaluate cardiac structure and possible thrombosism, patient agrees will have a JERZY tomorrow, will have a PT OT evaluate the patient and patient will benefit going to rehab possibly [facility], started the patient on aspirin Plavix and Lipitor, covid 19 test is negative (2) CVA (cerebral vascular accident): Code(s): I63.9 - Cerebral infarction, unspecified Status: Acute Assessment and Plan: Patient did have a suspicion for stroke on a CT. MRI has been ordered. Carotid Dopplers were also ordered and a bubble study. Patient is having some visual difficulty at this time. Neurology consult was greatly be appreciated. Patient was started on an aspirin. (3) Hypertension: Code(s): I10 - Essential (primary) hypertension Status: Acute Assessment and Plan: P.r.n. hydralazine only. Hold home medications. The patient was on Norvasc and metoprolol. Will permissively monitor the blood placed (4) Anxiety: Code(s): F41.9 - Anxiety disorder, unspecified Status: Chronic Assessment and Plan: He is not currently on any medications at this time please continue to monitor. DS: Summary Hospital Course Reason for hospitalization: Scott Ndiaye is a 49 year old male came to the emergency room because he felt like he was having a stroke. The patient fell sleeps Chaitanya night and woke up a few times and vomited. He felt like he had some acid in his stomach and he could not sit up for more than a few minutes because his eyes were foggy and blood so the patient stayed on the couch. He was nauseated when sitting up. He no longer has an
== END 2019-11-27 14:45 | disposition home health service (06) | DRG 45 ==
LOC: ANHED 15:20 → ANHICU 15:39 → ANH2MED 11-26 15:37 → ANHICU 12-01 08:15
PROVIDERS: Internal Medicine Cardiovascular Disease; Nurse Practitioner; Admitting Provider Family Medicine; Emergency Provider Emergency Medicine; Visit Provider Family Medicine
PROC: B24BZZ4 Ultrasonography of Heart with Aorta, Transesophageal (ICD-10-PCS; CPT 93312; principal; 2019-11-27 09:00)
DX: I63.112 Cerebral infarction due to embolism of left vertebral artery (principal); J18.9 Pneumonia, unspecified organism; F41.9 Anxiety disorder, unspecified; M19.90 Unspecified osteoarthritis, unspecified site; G81.94 Hemiplegia, unspecified affecting left nondominant side; G62.9 Polyneuropathy, unspecified; K21.9 Gastro-esophageal reflux disease without esophagitis; Z86.19 Personal history of other infectious and parasitic diseases; Q21.1 Atrial septal defect; F15.10 Other stimulant abuse, uncomplicated; Z20.828 Contact with and (suspected) exposure to other viral communicable diseases; I10 Essential (primary) hypertension; Z87.442 Personal history of urinary calculi; Z28.21 Immunization not carried out because of patient refusal; Z90.49 Acquired absence of other specified parts of digestive tract; F17.210 Nicotine dependence, cigarettes, uncomplicated; R29.700 NIHSS score 0; M54.9 Dorsalgia, unspecified; G89.29 Other chronic pain; H54.7 Unspecified visual loss; R00.1 Bradycardia, unspecified; F12.10 Cannabis abuse, uncomplicated; I25.3 Aneurysm of heart
CPT/HCPCS: 36415; 70450; 70496; 71045; 71046; 72131; 72170; 80053; 80061; 80307; 81001; 82550; 83605; 83735; 83880; 84439; 84443; 84480; 84484; 85025; 85610; 85730; 87040; 87804; 93005; 93312; 93320; 93325; 93880; 96365; 96366; 96367; 96375; 97116; 97161; 97165; 99285; A9270; C8929; G0378; G0379; J0360; J0456; J0696; J2250; J3010; J7040; Q9957; Q9967

== ENCOUNTER 2021-05-20 12:58 | Emergency (ER) | payer OTHER, SELFPAY ==
[2021-05-20] VITALS (26 sets, daily range): BP systolic 129–166; BP diastolic 92–129; PULSE 63–85; RESP 13–21; TEMP 36.6; O2SAT 93–100
--- NOTE | ~2021-05-20 | XR_ITS ---
EXAMINATION: XR chest 2V 05/20/2021 13:26 INDICATION: Left-sided chest pain. Reflux. Hypertension. PROCEDURE: 2 view chest COMPARISON: 11/26/2019 FINDINGS: The lungs are clear. The cardiomediastinal silhouette is within normal limits. There are no pleural effusions. There is no pneumothorax suspected. IMPRESSION: 1: NO ACUTE CARDIOPULMONARY DISEASE. Reviewed, dictated and finalized at location A.
--- NOTE | ~2021-05-20 | CT_ITS ---
EXAMINATION: CT brain wo con DATE: 05/20/2021 16:27 INDICATION: Dizziness TECHNIQUE: Computed tomography (CT) of the head was performed without intravenous contrast. Sagittal and coronal reconstructions were performed. The mA was adjusted according to patient size. Iterative reconstruction technique was employed. The dose-length product was 681.00 mGy-cm. COMPARISON: head CT dated 11/26/2019 FINDINGS: No acute intracranial hemorrhage, acute infarction or abnormal extra axial fluid collection. Small fo cus of residual encephalomalacia at the site of a prior acute infarct at the inferior left cerebellum . Unchanged minimal scattered nonspecific white matter hypoattenuation. Ventricles are normal and sy mmetric. No mass/mass effect. The orbits, paranasal sinuses and mastoid air cells are normal. Small a mount of atherosclerotic calcification at the bilateral carotid siphons. IMPRESSION: 1. Small old left cerebellar infarct. No acute intracranial process. Reviewed, dictated and finalized at location A.
--- NOTE | 2021-05-20 13:01 | ECG_ITS ---
Measurements Intervals [place] Rate: 72 P: 28 IN: 182 QRS: -3 QRSD: 94 T: 69 QT: 401 QTc: 440 Interpretive Statements SINUS RHYTHM NONSPECIFIC T-WAVE ABNORMALITY- HIGH LATERAL LEADS BASELINE ARTIFACT- I, III, AVL, V1 BORDERLINE ECG Electronically Signed On 05-20-2021 13:12:06 CDT by Jose Doe D.O.
[2021-05-20 13:22] LABS: Basophils Percent Auto 0.4 % (0.2-1.2); Eosinophils Absolute Auto 0.3 K/mm3 (0-0.3); Eosinophils Percent Auto 3.6 % (0-4.4); Hematocrit 42.1 % (42.0-52.0); Hemoglobin 15.1 g/dL (14.0-18.0); Immature Granulocyte Absolute 0.01 K/mm3 (0.00-0.031); Immature Granulocyte Percent A 0.1 % (0-0.5); Lymphocytes Percent Auto 42.2 % (18.3-44.2); Mean Corpuscular HGB Conc 35.9 g/dl (32-36); Mean Corpuscular Hemoglobin 35.5 pg (26-34); Mean Corpuscular Volume 99.1 fl (80-100); Mean Platelet Volume 9.8 fl (7.4-10.4); Monocytes Absolute Auto 0.6 K/mm3 (0.1-0.6); Monocytes Percent Auto 7.4 % (2.6-8.5); Neutrophils Absolute Auto 3.5 K/mm3 (1.3-6.7); Neutrophils Percent Auto 46.3 % (45.5-73.1); Platelet Count Result 244 k/mm3 (150-375); Red Blood Count 4.25 M/mm3 (4.6-6.20); Red Cell Distribution Width 12.4 % (11.5-14.5); White Blood Count 7.6 K/mm3 (4.5-10.0)
[2021-05-20 13:33] LABS: Anion Gap 7 mmol/L (8-16); Blood Urea Nitrogen 15 mg/dL (9-20); Calcium 9.2 mg/dL (8.4-10.2); Carbon Dioxide 28 mmol/L (22-30); Chloride 106 mmol/L (98-107); Estimated Glomerular Filt Rate > 60; Glucose 118 mg/dL (65-110); Potassium 4.1 mmol/L (3.4-5.0); Sodium 141 mmol/L (137-145)
[2021-05-20 13:44] LABS: Troponin I < 0.012 ng/mL (0.000-0.034)
[2021-05-20 13:55] LABS: Prothrombin Time 12.7 Seconds (11.1-14.7)
[2021-05-20 13:56] LABS: Partial Thromboplastin Time 27.9 SECONDS (22.3-36.8)
[2021-05-20] MEDS: ASPIRIN 81 MG CHEWABLE TABLET 324 MG PO (15:08)
[2021-05-20] MEDS: hydrALAZINE HCL 20 MG/ML VIAL 10 MG IV PUSH (16:13)
[2021-05-20] MEDS: MECLIZINE HCL 25 MG TABLET PO (17:01)
[2021-05-20 17:04] LABS: Troponin I < 0.012 ng/mL (0.000-0.034)
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
== END 2021-05-20 20:15 | disposition home or self-care (01) ==
PROVIDERS: Emergency Medicine; Emergency Provider Emergency Medicine
DX: R07.89 Other chest pain (principal); I10 Essential (primary) hypertension; M19.90 Unspecified osteoarthritis, unspecified site; K21.9 Gastro-esophageal reflux disease without esophagitis; Z86.73 Personal history of transient ischemic attack (TIA), and cerebral infarction without residual deficits; G62.9 Polyneuropathy, unspecified; Z87.442 Personal history of urinary calculi; Z86.19 Personal history of other infectious and parasitic diseases; F17.210 Nicotine dependence, cigarettes, uncomplicated; R94.31 Abnormal electrocardiogram [ECG] [EKG]
CPT/HCPCS: 36415; 70450; 71046; 80048; 84484; 85025; 85610; 85730; 93005; 96374; 99284; A9270; J0360